=== PATIENT | male | born 1965 | race African-American/Black ===

== ENCOUNTER 2024-12-11 11:34 | Emergency (ER) | payer BC ==
[~2024-12-11] VITALS: Ht 172.7 cm; Wt 86.2 kg
[2024-12-11] MEDS ORDERED: KETOROLAC TROMETHAMINE 30 MG INJ ONE (12:29)
[2024-12-11] MEDS: KETOROLAC TROMETHAMINE 30 MG INJ IM ONE (12:35)
[2024-12-11 12:41] LABS: PLATELET COUNT (AUTO) 149 K/uL (152-348); RED BLOOD CELL COUNT(AUTO) 4.21 MIL/uL (4.06-5.63); RED CELL DISTRIBUTION WIDTH 12.8 % (12.1-16.2); WHITE BLOOD COUNT (AUTO) 5.3 K/uL (3.6-10.2)
[2024-12-11 12:42] LABS: CREATININE 0.7 mg/dL (0.6-1.3); SODIUM SERUM 142 mmol/L (136-145); UREA NITROGEN, BLOOD 14 mg/dL (7-18)
[2024-12-11 12:46] LABS: ERYTHROCYTE SEDIMENTATION RATE 16 MM/HR (0-15)
[2024-12-11 13:49] LABS: BAND % (MANUAL) 4 % (0-10); EOSINOPHILS % (MANUAL) 3 % (0-8); LYMPHOCYTES % (MANUAL) 30 % (20-40); MONOCYTES % (MANUAL) 17 % (2-10); NEUTROPHILS % (MANUAL) 46 % (42-75)
[2024-12-11 13:50] LABS: PLATELET ESTIMATE DECREASED
[2024-12-11 14:00] VITALS: BP 145/82
[2024-12-11] MEDS ORDERED: NAPR500T6 PO (14:49)
[2024-12-11] MEDS ORDERED: HYDR-3980 PO (14:49)
[2024-12-11 15:10] VITALS: BP 145/82; TEMP 97.7; O2SAT 98
== END 2024-12-11 15:10 | disposition home or self-care (01) ==
LOC: ER 11:34
DX: M12.562 Traumatic arthropathy, left knee (principal); Z86.2 Personal history of diseases of the blood and blood-forming organs and certain disorders involving the immune mechanism
CPT/HCPCS: 99284; 80048; 85007; 85027; 85651; 36415; 73564; 96372; J1885; 70030-TC; A4606; A4663